=== PATIENT | female | born 1945 | race Caucasian/White ===

== ENCOUNTER 2016-12-05 08:49 | Observation (INO) | payer MEDICARE, OTHER ==
[~2016-12-05 08:49] MED LIST: ABILIFY30 MG; ADULT ASPIRIN81 MG PO; ADULT LOW DOSE81 MG PO; ALBUTEROL2.5 MG/3 M INH; AMIODARONE HCL200 M1 PO; ANEXSIA; ASPIR 8181 MG; ASPIRIN EC81 MG PO; BALSALAZIDE DI750 M1 PO; BAYER ASPIRIN325 M1 PO; BAYER81 MG; BENTYL10 M1 PO; BENTYL20 MG PO; BENZONATATE200 MG PO; CARTIA XT120 MG; CETIRIZINE HCL10 M1 PO; CIPRO500 MG PO; COMPAZINE10 M PO; COMPLETE MULTI1 EAC1 PO; COZAAR50 M1 PO; CULTURELLE1 CAP PO; DELTASONE10 MG PO; DEPAKOTE D250 MG/TAB PO; DEPAKOTE ER500 MG PO; DIFLUCAN150 M1 PO; DIFLUCAN150 MG PO; DIVALPROEX SOD500 M1 PO; FLAGYL250 MG PO; FLAGYL500 MG PO; FLECAINIDE ACE100 M1 PO; FLECAINIDE ACE100 MG; FLECAINIDE ACE100 MG PO; FUROSEMIDE40 MG PO; HYDROCODON-ACE1 EA16 PO; HYDROCODON-ACE1 EAC8 PO; IMODIUM2 MG PO; IRON325 M3 PO; K-LOR20 MEQ/PKT PO; KLOR-CON 1010 MEQ; LAMICTAL200 M1 PO; LAMICTAL200 MG; LAMICTAL200 MG PO; LAMICTAL25 M PO; LASIX20 MG; LASIX40 M1 PO; LEVAQUIN500 MG PO; LISINOPRIL; LISINOPRIL10 MG; LISINOPRIL5 MG; LISINOPRIL5 MG PO; LORTAB 7.5/5001 EA PO; LORTAB 7.5/5001 TAB; LOSARTAN POTASS50 MG PO; MAG 6464 MG; MAGNESIUM250 MG PO; MOBIC7.5 MG; MOTRIN400 MG PO; NEURONTIN300 M1 PO; NEURONTIN600 MG; NIFEDICAL XL30 MG; NORCO 5-325 TA1 EACH PO; NORCO 5/325 TAB1 TAB PO; NORCO 7.5/325 T1 TAB PO; OMEPRAZOLE20 M2 PO; OXYBUTYNIN PO; POTASSIUM CHLO20 ME3 PO; PROTONIX40 M1 PO; PROTONIX40 M2 PO; PROTONIX40 MG; SLOW-MAG71.5 MG PO; TAMBOCOR100 MG; TAMBOCOR100 MG PO; TOPROL XL100 M1 PO; TOPROL XL25 MG PO; TRAMADOL HCL50 MG PO; TYLENOL325 MG PO; VENTOLIN HFA18 GM INH; VICODIN 5/500 T1 TAB PO; VOLTAREN GEL 1100 G1 TOP; VOLTAREN50 MG; WAL-ZYR10 MG PO; XARELTO20 M1 PO; ZESTRIL5 MG PO; ZITHROMAX250MG Z-PAK PO; ZOFRAN ODT4 MG/UDTAB PO; ZYRTEC10 M3 PO; [UNRECOGNIZED DRUG - OTHER] PO
[2016-12-05 10:23] LABS: BASO % 0.3 % (0-2); EOS % 1.4 % (0-7); EOSINOPHIL ABSOLUTE COUNT 0.1 tho/cmm (0.0-0.7); HGB-HEMOGLOBIN 10.9 gm/dl (12.0-15.5); IMMATURE GRANULOCYTES ABSOLUTE 0.01 tho/cmm (0-0.03); IMMATURE GRANULOCYTES PERCENT 0.1 % (0-0.3); LYMPH % 23.1 % (20-45); LYMPH ABSOLUTE COUNT 1.6 tho/cmm (0.8-4.5); MCH (MEAN CORPUSCULAR HGB) 29.3 pg (28.0-32.0); MCHC MEAN CORPUSCULAR HGB CONC 32.1 % (32.0-36.0); MCV (MEAN CELL VOLUME) 91.4 fl (82.0-96.0); MEAN PLATELET VOLUME 12.1 cmc (9.4-12.4); MONO % 9.5 % (0-12); MONOCYTE ABSOLUTE COUNT 0.7 tho/cmm (0.0-1.2); NEUTROPHIL ABSOLUTE COUNT 4.6 tho/cmm (1.6-8.0); NEUTROPHIL-AUTOMATED 4.6 tho/cmm (1.6-8.0); NEUTROPHILS % 65.6 % (40-80); PLATELET COUNT 254 tho/cmm (150-450); RED BLOOD COUNT 3.72 mil/cmm (4.00-5.20); RED CELL DISTRIBUTION WIDTH 14.4 % (12.4-16.4); WHITE BLOOD COUNT 7.1 tho/cmm (4.0-10.0)
[2016-12-05 10:29] LABS: INR 1.4 INR (0.9-1.1); PROTHROMBIN TIME 16.4 SECONDS (9.0-13.6)
[2016-12-05 11:56] LABS: BASO % 0.3 % (0-2); EOS % 1.2 % (0-7); EOSINOPHIL ABSOLUTE COUNT 0.1 tho/cmm (0.0-0.7); HCT-HEMATOCRIT 34.3 % (34.0-49.0); HGB-HEMOGLOBIN 10.7 gm/dl (12.0-15.5); IMMATURE GRANULOCYTES ABSOLUTE 0.02 tho/cmm (0-0.03); IMMATURE GRANULOCYTES PERCENT 0.3 % (0-0.3); LYMPH % 21.4 % (20-45); LYMPH ABSOLUTE COUNT 1.6 tho/cmm (0.8-4.5); MCH (MEAN CORPUSCULAR HGB) 28.5 pg (28.0-32.0); MCHC MEAN CORPUSCULAR HGB CONC 31.2 % (32.0-36.0); MCV (MEAN CELL VOLUME) 91.2 fl (82.0-96.0); MEAN PLATELET VOLUME 12.1 cmc (9.4-12.4); MONO % 10.4 % (0-12); MONOCYTE ABSOLUTE COUNT 0.8 tho/cmm (0.0-1.2); NEUTROPHIL ABSOLUTE COUNT 4.9 tho/cmm (1.6-8.0); NEUTROPHIL-AUTOMATED 4.9 tho/cmm (1.6-8.0); NEUTROPHILS % 66.4 % (40-80); PLATELET COUNT 243 tho/cmm (150-450); RED BLOOD COUNT 3.76 mil/cmm (4.00-5.20); RED CELL DISTRIBUTION WIDTH 14.3 % (12.4-16.4); WHITE BLOOD COUNT 7.3 tho/cmm (4.0-10.0)
[2016-12-05 12:03] LABS: INR 1.5 INR (0.9-1.1); PROTHROMBIN TIME 17.6 SECONDS (9.0-13.6)
[2016-12-05 12:14] LABS: ANION GAP 12 mmol/L (0-20); BLOOD UREA NITROGEN 19 mg/dl (6-24); CALCIUM 7.4 mg/dl (8.5-10.5); CARBON DIOXIDE-VENOUS 30 mmol/L (22-32); CHLORIDE 105 mmol/l (96-110); CREATININE 1.51 mg/dl (0.50-1.10); GLUCOSE 104 mg/dL (70-110); MAGNESIUM 1.3 mg/dl (1.3-2.6); POTASSIUM 3.8 mmol/L (3.7-5.1); SODIUM 143 mmol/L (135-145); eGFR VALUE FOR BLACK 40 mL/Min
[2017-04-21] MEDS ORDERED: NORCO 5-325 TA1 EACH PO (18:29)
[2017-04-21] MEDS ORDERED: CYCLOBENZAPRINE10 M1 PO (18:29)
== END 2016-12-06 12:00 ==
LOC: EDMED 08:49 → EMR2 13:24 → PCUA 15:25
PROVIDERS: Emergency Medicine; ADMIT Internal Medicine
PROC: 05HF33Z Insertion of Infusion Device into Left Cephalic Vein, Percutaneous Approach (ICD-10-PCS; principal; 2016-12-05)
DX: I48.91 Unspecified atrial fibrillation (principal); I10 Essential (primary) hypertension; E66.01 Morbid (severe) obesity due to excess calories; Z79.01 Long term (current) use of anticoagulants; Z79.82 Long term (current) use of aspirin; Z79.899 Other long term (current) drug therapy; Z88.2 Allergy status to sulfonamides; Z88.5 Allergy status to narcotic agent; Z88.8 Allergy status to other drugs, medicaments and biological substances; Z91.040 Latex allergy status; Z82.49 Family history of ischemic heart disease and other diseases of the circulatory system; Z90.49 Acquired absence of other specified parts of digestive tract; Z98.84 Bariatric surgery status; Z98.890 Other specified postprocedural states
CPT/HCPCS: C1751; G0378

== ENCOUNTER 2016-12-22 07:11 | Emergency (ER) | payer MEDICARE, OTHER ==
[2016-12-22 08:19] LABS: ANION GAP 12 mmol/L (0-20); BLOOD UREA NITROGEN 23 mg/dl (6-24); CALCIUM 7.9 mg/dl (8.5-10.5); CARBON DIOXIDE-VENOUS 26 mmol/L (22-32); CHLORIDE 107 mmol/l (96-110); CREATININE 1.56 mg/dl (0.50-1.10); GLUCOSE 99 mg/dL (70-110); POTASSIUM 3.9 mmol/L (3.7-5.1); SODIUM 141 mmol/L (135-145); eGFR VALUE FOR BLACK 39 mL/Min
[2017-04-21] MEDS ORDERED: NORCO 5-325 TA1 EACH PO (18:29)
[2017-04-21] MEDS ORDERED: CYCLOBENZAPRINE10 M1 PO (18:29)
== END 2016-12-22 08:48 ==
LOC: EDMED 07:11
PROVIDERS: Emergency Medicine
DX: I48.0 Paroxysmal atrial fibrillation (principal); I10 Essential (primary) hypertension

== ENCOUNTER 2017-01-15 01:27 | Emergency (ER) | payer MEDICARE, OTHER ==
[2017-01-15] MEDS ORDERED: FLECAINIDE ACE100 M1 PO (01:45)
[2017-01-15 02:42] LABS: BASO % 0.3 % (0-2); EOS % 1.7 % (0-7); EOSINOPHIL ABSOLUTE COUNT 0.1 tho/cmm (0.0-0.7); HGB-HEMOGLOBIN 10.2 gm/dl (12.0-15.5); IMMATURE GRANULOCYTES ABSOLUTE 0.01 tho/cmm (0-0.03); IMMATURE GRANULOCYTES PERCENT 0.1 % (0-0.3); LYMPH % 27.4 % (20-45); LYMPH ABSOLUTE COUNT 2.1 tho/cmm (0.8-4.5); MCH (MEAN CORPUSCULAR HGB) 28.5 pg (28.0-32.0); MCHC MEAN CORPUSCULAR HGB CONC 31.9 % (32.0-36.0); MCV (MEAN CELL VOLUME) 89.4 fl (82.0-96.0); MEAN PLATELET VOLUME 12.5 cmc (9.4-12.4); MONO % 8.7 % (0-12); MONOCYTE ABSOLUTE COUNT 0.7 tho/cmm (0.0-1.2); NEUTROPHIL ABSOLUTE COUNT 4.8 tho/cmm (1.6-8.0); NEUTROPHIL-AUTOMATED 4.8 tho/cmm (1.6-8.0); NEUTROPHILS % 61.8 % (40-80); PLATELET COUNT 234 tho/cmm (150-450); RED BLOOD COUNT 3.58 mil/cmm (4.00-5.20); RED CELL DISTRIBUTION WIDTH 15.3 % (12.4-16.4); WHITE BLOOD COUNT 7.7 tho/cmm (4.0-10.0)
[2017-01-15 02:55] LABS: ALB/GLOB RATIO 0.7 (0.8-2.0); ALBUMIN 2.9 g/dl (3.5-5.0); ALKALINE PHOSPHATASE 114 U/L (33-138); ALT/SGPT 21 U/L (12-78); ANION GAP 14 mmol/L (0-20); AST/SGOT 14 U/L (10-40); BLOOD UREA NITROGEN 24 mg/dl (6-24); CALCIUM 7.9 mg/dl (8.5-10.5); CARBON DIOXIDE-VENOUS 25 mmol/L (22-32); CHLORIDE 107 mmol/l (96-110); CREATININE 1.61 mg/dl (0.50-1.10); GLUCOSE 103 mg/dL (70-110); LIPASE 253 U/L (73-393); POTASSIUM 3.5 mmol/L (3.7-5.1); SODIUM 142 mmol/L (135-145); eGFR VALUE FOR BLACK 37 mL/Min
[2017-01-15] MEDS ORDERED: NORCO 5/3251 TAB PO (03:10)
[2017-04-21] MEDS ORDERED: NORCO 5-325 TA1 EACH PO (18:29)
[2017-04-21] MEDS ORDERED: CYCLOBENZAPRINE10 M1 PO (18:29)
== END 2017-01-15 03:27 ==
LOC: EDMED 01:27
PROVIDERS: Emergency Medicine
DX: K21.9 Gastro-esophageal reflux disease without esophagitis (principal); F41.9 Anxiety disorder, unspecified; I11.0 Hypertensive heart disease with heart failure; I48.91 Unspecified atrial fibrillation; E66.01 Morbid (severe) obesity due to excess calories; F31.9 Bipolar disorder, unspecified; Z79.899 Other long term (current) drug therapy; Z79.82 Long term (current) use of aspirin

== ENCOUNTER 2017-05-27 03:54 | Inpatient (IN) | payer MEDICARE, OTHER ==
[~2017-05-27] VITALS: Ht 160 cm; Wt 183.2 kg
[~2017-05-27 03:54] MED LIST changes: +CYCLOBENZAPRINE10 M1 PO; +NORCO 5/3251 TAB PO
[2017-05-27 04:27] LABS: BASO % 0.5 % (0-2); EOS % 1.1 % (0-7); EOSINOPHIL ABSOLUTE COUNT 0.1 tho/cmm (0.0-0.7); HCT-HEMATOCRIT 29.9 % (34.0-49.0); HGB-HEMOGLOBIN 9.4 gm/dl (12.0-15.5); IMMATURE GRANULOCYTES ABSOLUTE 0.02 tho/cmm (0-0.03); IMMATURE GRANULOCYTES PERCENT 0.2 % (0-0.3); LYMPH % 27.3 % (20-45); LYMPH ABSOLUTE COUNT 2.2 tho/cmm (0.8-4.5); MCHC MEAN CORPUSCULAR HGB CONC 31.4 % (32.0-36.0); MCV (MEAN CELL VOLUME) 82.8 fl (82.0-96.0); MEAN PLATELET VOLUME 12.3 cmc (9.4-12.4); MONOCYTE ABSOLUTE COUNT 0.8 tho/cmm (0.0-1.2); NEUTROPHILS % 60.9 % (40-80); PLATELET COUNT 266 tho/cmm (150-450); RED BLOOD COUNT 3.61 mil/cmm (4.00-5.20); RED CELL DISTRIBUTION WIDTH 16.8 % (12.4-16.4); WHITE BLOOD COUNT 8.2 tho/cmm (4.0-10.0)
[2017-05-27 04:47] LABS: ALB/GLOB RATIO 0.7 (0.8-2.0); ALBUMIN 3.1 g/dl (3.5-5.0); ALKALINE PHOSPHATASE 134 U/L (33-138); ALT/SGPT 26 U/L (12-78); ANION GAP 12 mmol/L (0-20); AST/SGOT 18 U/L (10-40); BILIRUBIN,TOTAL 1.1 mg/dl (0-1.5); BLOOD UREA NITROGEN 14 mg/dl (6-24); CALCIUM 7.4 mg/dl (8.5-10.5); CARBON DIOXIDE-VENOUS 22 mmol/L (22-32); CHLORIDE 110 mmol/l (96-110); CREATININE 1.39 mg/dl (0.50-1.10); GLUCOSE 96 mg/dL (70-110); POTASSIUM 3.3 mmol/L (3.7-5.1); SODIUM 141 mmol/L (135-145); eGFR VALUE FOR BLACK 44 mL/Min
[2017-05-27] MEDS ORDERED: NORCO 5-325 TA1 EACH PO (13:26)
[2017-05-27] MEDS ORDERED: VITAMIN D250000 UNI1 PO (13:27)
[2017-05-28 05:03] LABS: ANION GAP 11 mmol/L (0-20); BLOOD UREA NITROGEN 19 mg/dl (6-24); CALCIUM 7.4 mg/dl (8.5-10.5); CARBON DIOXIDE-VENOUS 26 mmol/L (22-32); CHLORIDE 110 mmol/l (96-110); CHOLESTEROL 98 mg/dl (120-200); CREATININE 1.69 mg/dl (0.50-1.10); GLUCOSE 99 mg/dL (70-110); HDL CHOLESTEROL 44 mg/dl (40-60); LDL CHOLESTEROL 38 mg/dl (0-99); POTASSIUM 3.3 mmol/L (3.7-5.1); SODIUM 144 mmol/L (135-145); TRIGLYCERIDES 82 mg/dl (<149); VLDL 16 mg/dl (0-30); eGFR VALUE FOR BLACK 35 mL/Min
[2017-05-29 04:45] LABS: BASO % 0.7 % (0-2); BASO ABSOLUTE COUNT 0.1 tho/cmm (0.0-0.2); EOS % 2.2 % (0-7); EOSINOPHIL ABSOLUTE COUNT 0.2 tho/cmm (0.0-0.7); HCT-HEMATOCRIT 28.2 % (34.0-49.0); HGB-HEMOGLOBIN 8.8 gm/dl (12.0-15.5); IMMATURE GRANULOCYTES ABSOLUTE 0.02 tho/cmm (0-0.03); IMMATURE GRANULOCYTES PERCENT 0.3 % (0-0.3); LYMPH % 32.4 % (20-45); LYMPH ABSOLUTE COUNT 2.2 tho/cmm (0.8-4.5); MCH (MEAN CORPUSCULAR HGB) 25.6 pg (28.0-32.0); MCHC MEAN CORPUSCULAR HGB CONC 31.2 % (32.0-36.0); MEAN PLATELET VOLUME 12.3 cmc (9.4-12.4); MONO % 12.1 % (0-12); MONOCYTE ABSOLUTE COUNT 0.8 tho/cmm (0.0-1.2); NEUTROPHIL ABSOLUTE COUNT 3.6 tho/cmm (1.6-8.0); NEUTROPHIL-AUTOMATED 3.6 tho/cmm (1.6-8.0); NEUTROPHILS % 52.3 % (40-80); PLATELET COUNT 258 tho/cmm (150-450); RED BLOOD COUNT 3.44 mil/cmm (4.00-5.20); WHITE BLOOD COUNT 6.8 tho/cmm (4.0-10.0)
[2017-05-29 04:58] LABS: ALB/GLOB RATIO 0.7 (0.8-2.0); ALKALINE PHOSPHATASE 129 U/L (33-138); ALT/SGPT 35 U/L (12-78); ANION GAP 10 mmol/L (0-20); AST/SGOT 22 U/L (10-40); BILIRUBIN,TOTAL 1.3 mg/dl (0-1.5); BLOOD UREA NITROGEN 23 mg/dl (6-24); CALCIUM 7.1 mg/dl (8.5-10.5); CARBON DIOXIDE-VENOUS 27 mmol/L (22-32); CHLORIDE 107 mmol/l (96-110); CREATININE 1.83 mg/dl (0.50-1.10); GLUCOSE 102 mg/dL (70-110); POTASSIUM 3.3 mmol/L (3.7-5.1); SODIUM 141 mmol/L (135-145); eGFR VALUE FOR BLACK 32 mL/Min
[2017-05-30 07:13] LABS: IRON 15 ug/dl (37-170); IRON BINDING CAPACITY 439 ug/dl (250-450)
[2017-05-30 07:18] LABS: ANION GAP 12 mmol/L (0-20); BLOOD UREA NITROGEN 25 mg/dl (6-24); CALCIUM 6.8 mg/dl (8.5-10.5); CARBON DIOXIDE-VENOUS 27 mmol/L (22-32); CHLORIDE 109 mmol/l (96-110); CREATININE 1.84 mg/dl (0.50-1.10); FERRITIN 6 ng/ml (8-250); GLUCOSE 93 mg/dL (70-110); MAGNESIUM 1.2 mg/dl (1.8-2.6); PHOSPHOROUS 3.7 mg/dl (2.5-4.9); POTASSIUM 3.7 mmol/L (3.7-5.1); SODIUM 144 mmol/L (135-145); eGFR VALUE FOR BLACK 32 mL/Min
[2017-05-30] MEDS ORDERED: POTASSIUM CHLO20 ME3 PO (15:44)
[2017-05-30] MEDS ORDERED: CHLORTHALIDONE25 M1 PO (15:45)
[2017-05-30] MEDS ORDERED: COZAAR25 M1 PO (15:47)
[2017-05-30] MEDS ORDERED: VENOFER200 MG/10 IV (15:49)
== END 2017-05-30 17:10 | DRG 291 ==
LOC: EDMED 03:54 → EMR2 07:14 → PCUB 07:14
PROVIDERS: Emergency Medicine; Internal Medicine Cardiovascular Disease; Internal Medicine Nephrology; Nurse Practitioner Family; ADMIT Internal Medicine Interventional Cardiology
DX: I13.0 Hypertensive heart and chronic kidney disease with heart failure and stage 1 through stage 4 chronic kidney disease, or unspecified chronic kidney disease (principal); I50.43 Acute on chronic combined systolic (congestive) and diastolic (congestive) heart failure; K50.90 Crohn's disease, unspecified, without complications; I48.0 Paroxysmal atrial fibrillation; Z68.45 Body mass index [BMI] 70 or greater, adult; N18.3 Chronic kidney disease, stage 3 (moderate); E66.01 Morbid (severe) obesity due to excess calories; G47.33 Obstructive sleep apnea (adult) (pediatric); D63.1 Anemia in chronic kidney disease; N89.8 Other specified noninflammatory disorders of vagina; E87.6 Hypokalemia; Z91.14 Patient's other noncompliance with medication regimen; Z95.0 Presence of cardiac pacemaker; Z98.84 Bariatric surgery status; Z79.01 Long term (current) use of anticoagulants; Z79.82 Long term (current) use of aspirin; Z79.899 Other long term (current) drug therapy
CPT/HCPCS: C1751; C8929; G8987-GO-CH; G8988-GO-CH; G8989-GO-CH; J1756; J1940; J3475